=== PATIENT | male | born 1985 | race African-American/Black ===

== ENCOUNTER 2025-08-08 11:09 | Emergency (ER) | payer OTHER ==
[~2025-08-08] VITALS: Ht 170.2 cm; Wt 79.5 kg
[2025-08-08 11:49] LABS: APPEARANCE,URINE CLEAR (CLEAR); GLUCOSE, URINE (UA) NEGATIVE (NEGATIVE); LEUKOCYTE ESTERASE ,URINE NEGATIVE (NEGATIVE); NITRATE,URINE NEGATIVE (NEGATIVE); OCCULT BLOOD,URINE NEGATIVE (NEGATIVE); SPECIFIC GRAVITIY, URINE 1.026 (1.003-1.030)
[2025-08-08] MEDS: AZITHROMYCIN 500 MG TABLET PO ONE (11:52)
[2025-08-08] MEDS: CefTRIAXone SODIUM 1 GM/VIAL IM ONE (11:52)
[2025-08-08] MEDS: LIDOCAINE/PF 1% 2 ML VIAL IM ONE (11:52)
[2025-08-08] MEDS ORDERED: BICT1TAB PO (12:31)
[2025-08-08 12:37] VITALS: BP 127/76; PULSE 60; RESP 20; TEMP 97.7; O2SAT 98
== END 2025-08-08 13:35 | disposition home or self-care (01) ==
LOC: EMS 11:09
DX: N34.2 Other urethritis (principal); Z11.3 Encounter for screening for infections with a predominantly sexual mode of transmission; Z20.2 Contact with and (suspected) exposure to infections with a predominantly sexual mode of transmission
CPT/HCPCS: 99283; 81003; 87491; 87591; 96372; 87389; J0456; J0696; J3490